=== PATIENT | female | born 1985 | race Caucasian/White ===

== ENCOUNTER 2016-11-04 09:43 | Emergency (ER) | payer SELFPAY ==
[~2016-11-04] VITALS: Ht 157.5 cm; Wt 98.9 kg
[2016-11-04 13:36] VITALS: BP 125/76
== END 2016-11-04 13:36 | disposition home or self-care (01) ==
LOC: ED 09:43 → EDBD 09:43 → ED 13:36
DX: R51 Headache (principal); H52.12 Myopia, left eye; R11.2 Nausea with vomiting, unspecified; H53.149 Visual discomfort, unspecified
CPT/HCPCS: J1885; J3030